=== PATIENT | female | born 1980 | race African-American/Black ===

== ENCOUNTER 2017-06-19 06:10 | Inpatient (IN) | payer MEDICAID ==
[~2017-06-19] VITALS: Ht 170.2 cm; Wt 61.2 kg
[2017-06-19] MEDS ORDERED: LACTATED RINGERS 1,000 ML IV SCH (06:29)
[2017-06-19] MEDS ORDERED: DEXT 5%/LR + PITOCIN 20UNITS/L 1,000 ML IV SCH ×2 (06:29→08:00)
[2017-06-19] MEDS ORDERED: BUTORPHANOL TARTRATE 2 MG/ML VIAL IV PRN (06:30)
[2017-06-19] MEDS ORDERED: LIDOCAINE HCL 1% 20ML VIAL (Pyxis) INJ INFIL SCH (06:30)
[2017-06-19] MEDS ORDERED: METHYLERGONOVINE MALEATE 0.2 MG/ML IM PRN (06:30)
[2017-06-19] MEDS ORDERED: CARBOPROST TROMETHAMINE 250 MCG/ML AMPUL IM PRN (06:30)
[2017-06-19] MEDS ORDERED: PENICILLIN G POTASSIUM 5 MMU in DEXT 5% WATER 100 ML IV SCH (06:30)
[2017-06-19] MEDS ORDERED: MISOPROSTOL 100MCG TABLET VG SCH (06:30)
[2017-06-19] MEDS ORDERED: NALOXONE HCL 0.4 MG/ML 1ML VIAL IM PRN (06:30)
[2017-06-19 07:17] LABS: PARTIAL THROMBOPLASTIN TIME 26.8 sec (23.4-31.0)
[2017-06-19 07:47] LABS: RUBELLA IGG 22.4 IU/mL (4.99-10)
[2017-06-19 07:48] LABS: HEPATITIS B SURFACE ANTIGEN NEGATIVE
[2017-06-19 07:54] LABS: BASOPHILS % 0.3 % (0.0-2.0); CARBON DIOXIDE 22 mEq/L (21-32); CHLORIDE 104 mEq/L (98-107); EOSINOPHILS % 0.5 % (0.0-5.0); HEMATOCRIT. 23.7 % (36.0-48.0); HEMOGLOBIN. 7.1 g/dL (12.0-16.0); LYMPHOCYTES % 9.2 % (20.0-50.0); MEAN CORPUSCULAR HEMOGLOBIN 18.7 pg (28.0-32.0); MEAN CORPUSCULAR VOLUME 62.7 fL (81.0-99.0); MEAN PLATELET VOLUME 8.3 fl (7.4-10.4); PLATELET 179 x1000/uL (130-400); RED BLOOD CELL COUNT 3.78 mill/uL (4.2-5.4); RED CELL DISTRIBUTION WIDTH 18.3 % (11.6-14.6)
[2017-06-19] MEDS ORDERED: RHO(D) IMMUNE GLOBULIN 300 MCG/SYR IM PRN (08:00)
[2017-06-19] MEDS ORDERED: GLYCERIN/WITCH HAZEL LEAF MEDICATED PAD TOP PRN (08:00)
[2017-06-19] MEDS ORDERED: LANOLIN OINT 0.25 GM TUBE TOP PRN (08:00)
[2017-06-19] MEDS ORDERED: IBUPROFEN 400MG TABLET PO PRN (08:00)
[2017-06-19] MEDS ORDERED: ACETAMINOPHEN WITH CODEINE 300/30MG TABLET PO PRN ×2 (08:00)
[2017-06-19] MEDS ORDERED: HEMORRHOIDAL SUPP PR PRN (08:00)
[2017-06-19] MEDS ORDERED: DIPHENHYDRAMINE 25MG CAPSULE PO PRN (08:00)
[2017-06-19] MEDS: IBUPROFEN 800MG TABLET PO PRN ×2 (08:35→18:59)
[2017-06-19 09:06] LABS: PLATELET ESTIMATE NORMAL
[2017-06-19 09:30] VITALS: BP 110/63
[2017-06-19 09:58] LABS: CLARITY URINE TURBID (CLEAR); COLOR URINE RED (YELLOW); GLUCOSE URINE 2+ (NEGATIVE); KETONES URINE NEGATIVE (NEGATIVE); LEUKOCYTE ESTERASE URINE 2+ (NEGATIVE); NITRITE URINE POSITIVE (NEGATIVE); OCCULT BLOOD URINE 3+ (NEGATIVE); PROTEIN URINE 3+ (NEGATIVE); SPECIFIC GRAVITY URINE 1.019 (1.005-1.030)
[2017-06-19 10:41] LABS: *AMPHETAMINES SCREEN URINE NEGATIVE (NEGATIVE); *BARBITURATES SCREEN URINE NEGATIVE (NEGATIVE); *BENZODIAZEPINES SCREEN URINE NEGATIVE (NEGATIVE); CANNABINOID URINE SCREEN NEGATIVE (NEGATIVE); METHADONE URINE SCREEN NEGATIVE (NEGATIVE); OPIATES URINE SCREEN NEGATIVE (NEGATIVE); PHENCYCLIDINE URINE SCREEN NEGATIVE (NEGATIVE)
[2017-06-19 10:46] LABS: *COCAINE SCREEN URINE PRESUMTIVE POSITIVE (NEGATIVE)
[2017-06-19] MEDS ORDERED: PENICILLIN G POTASSIUM 2.5 MMU in DEXTROSE 5% WATER 50 ML IV SCH (11:00)
[2017-06-19 11:30] VITALS: BP 116/74
[2017-06-19 16:15] VITALS: BP 112/56
[2017-06-19] MEDS ORDERED: METHYLERGONOVINE MALEATE 0.2 MG/ML IM NR (18:45)
[2017-06-19] MEDS: SIMETHICONE 80MG TABLET CHEW PO SCH ×2 (18:57→23:11)
[2017-06-19] MEDS: PRENATAL VIT/FE FUMARATE/FA TABLET PO SCH (18:57)
[2017-06-19 23:10] VITALS: BP 114/70
[2017-06-19] MEDS: METHYLERGONOVINE MALEATE 0.2MG TABLET PO SCH (23:11)
[2017-06-19] MEDS: DOCUSATE SODIUM 100MG CAPSULE PO SCH (23:11)
[2017-06-20 02:50] VITALS: BP 113/59
[2017-06-20] MEDS: METHYLERGONOVINE MALEATE 0.2MG TABLET PO SCH ×5 (02:50→19:14)
[2017-06-20 06:42] VITALS: BP 107/59
[2017-06-20 06:48] LABS: BASOPHILS % 0.5 % (0.0-2.0); EOSINOPHILS % 1.3 % (0.0-5.0); HEMOGLOBIN. 7.5 g/dL (12.0-16.0); LYMPHOCYTES % 11.3 % (20.0-50.0); MEAN CORPUSCULAR VOLUME 63.3 fL (81.0-99.0); MEAN PLATELET VOLUME 8.7 fl (7.4-10.4); MONOCYTES % 7.6 % (2.0-8.0); NEUTROPHILS % 79.3 % (40.0-76.0); PLATELET 154 x1000/uL (130-400); RED BLOOD CELL COUNT 3.95 mill/uL (4.2-5.4); RED CELL DISTRIBUTION WIDTH 18.6 % (11.6-14.6)
[2017-06-20 08:00] VITALS: BP 127/67
[2017-06-20] MEDS: IBUPROFEN 800MG TABLET PO PRN ×2 (09:58→19:43)
[2017-06-20] MEDS: SIMETHICONE 80MG TABLET CHEW PO SCH ×4 (09:58→21:35)
[2017-06-20] MEDS: PRENATAL VIT/FE FUMARATE/FA TABLET PO SCH (09:58)
[2017-06-20] MEDS: FERROUS SULFATE 325MG TABLET PO SCH ×2 (14:40→17:28)
[2017-06-20 15:05] VITALS: BP 120/73
[2017-06-20 20:00] VITALS: BP 118/66
[2017-06-20] MEDS: DOCUSATE SODIUM 100MG CAPSULE PO SCH (21:35)
[2017-06-20] MEDS: HYDROCODONE/ACETAMINOPHEN 5/325MG TABLET PO PRN (21:35)
[2017-06-20] MEDS: NITROFURANTOIN 100MG M/M CAPSULE PO SCH (21:35)
[2017-06-21] MEDS: HYDROCODONE/ACETAMINOPHEN 5/325MG TABLET PO PRN (05:20)
[2017-06-21 05:38] VITALS: BP 125/55
[2017-06-21] MEDS: IBUPROFEN 800MG TABLET PO PRN (05:49)
[2017-06-21 08:00] VITALS: BP 127/67
[2017-06-21] MEDS: FERROUS SULFATE 325MG TABLET PO SCH (08:55)
[2017-06-21] MEDS: SIMETHICONE 80MG TABLET CHEW PO SCH (08:55)
[2017-06-21] MEDS: NITROFURANTOIN 100MG M/M CAPSULE PO SCH (08:55)
[2017-06-21] MEDS: PRENATAL VIT/FE FUMARATE/FA TABLET PO SCH (08:55)
[2017-06-29 15:11] LABS: COCAINE CONFIRMATION URINE Positive (.)
== END 2017-06-21 14:15 | disposition home or self-care (01) | DRG 560 ==
LOC: L&D 06:10 → OBSVTOIN 06:10 → 7EST PP/OB 09:16
PROVIDERS: ADMIT Specialist; ATTEND Specialist
PROC: 10E0XZZ Delivery of Products of Conception, External Approach (ICD-10-PCS; principal; 2017-06-19 07:46)
DX: O42.913 Preterm premature rupture of membranes, unspecified as to length of time between rupture and onset of labor, third trimester (principal); O75.3 Other infection during labor; O99.02 Anemia complicating childbirth; F10.10 Alcohol abuse, uncomplicated; F14.10 Cocaine abuse, uncomplicated; D64.9 Anemia, unspecified; N39.0 Urinary tract infection, site not specified; O41.1090 Infection of amniotic sac and membranes, unspecified, unspecified trimester, not applicable or unspecified; O60.14X0 Preterm labor third trimester with preterm delivery third trimester, not applicable or unspecified; O99.314 Alcohol use complicating childbirth; O99.324 Drug use complicating childbirth; Z72.0 Tobacco use; Z3A.33 33 weeks gestation of pregnancy; Z37.0 Single live birth
CPT/HCPCS: 36415; 76805; 76818; 80053; 80305; 80353; 81001; 84550; 85025; 85384; 85610; 85730; 86592; 86703; 86762; 86850; 86900; 87070; 87077; 87086; 87186; 87205; 87340; G0378; J2210; J2540; J2590; J7060; J7120